=== PATIENT | male | born 1995 | race Hispanic/Latino ===

== ENCOUNTER 2016-04-10 10:12 | Emergency (ER) | payer SELFPAY ==
[~2016-04-10] VITALS: Ht 172.7 cm; Wt 66.4 kg
[~2016-04-10 10:12] MED LIST: EUCERIN INTENS113 GM TP; FLONASE16 G1 BOTH NARES; MOTRIN600 MG PO
[2016-04-10 11:14] LABS: ADD MIUA? YES; BILIRUBIN NEGATIVE; BLOOD SMALL; COLOR YELLOW ((YELLOW)); GLUCOSE (STRIP) NEGATIVE; KETONES NEGATIVE; LEUKOCYTES NEGATIVE; NITRITE NEGATIVE; PROTEIN (STRIP) NEGATIVE; SPECIFIC GRAVITY 1.025 (1.000-1.030); UROBILINOGEN 0.2 MG/DL (0.2-1.0)
[2016-04-10 11:16] LABS: BACTERIA NONE SEEN /HPF; EPITHELIAL CELLS NONE SEEN /HPF; MUCUS 1+ /LPF; RED BLOOD CELLS 0-5 /HPF (0-5); WHITE BLOOD CELLS 0-5 /HPF (0-5)
[2016-04-10 11:31] LABS: INFLUENZA A VIRAL ANTIGEN NEGATIVE; INFLUENZA B VIRAL ANTIGEN NEGATIVE
[2016-04-10 11:32] LABS: HEMATOCRIT 42.2 % (38.0-50.0); MCH 29.1 PG (29.0-34.0); MCHC 34.8 G/DL (30.0-36.0); MCV 83.4 FL (86-99); PLATELET COUNT 217 K/uL (156-360); RBC DIS.WIDTH-CV 12.9 % (11.8-14.6); RBC DIS.WIDTH-SD 38.7 % (39-53); RED BLOOD COUNT 5.06 M/uL (4.00-5.50); WHITE BLOOD COUNT 11.7 K/uL (4.1-10.2)
[2016-04-10 11:39] LABS: CHLORIDE 104 mEq/L (99-109); POTASSIUM 3.9 mEq/L (3.7-5.4); SODIUM 138 mEq/L (136-147)
[2016-04-10 11:40] LABS: GLUCOSE 102 mg/dL (70-99)
[2016-04-10 11:42] LABS: ANION GAP 8 MEQ/L (2-14)
[2016-04-10 11:44] LABS: GFR ESTIMATE (CALCULATED) > 59 mL/min/
[2016-04-10 11:45] LABS: UREA NITROGEN (BUN) 14 mg/dL (9-23)
[2016-04-10] MEDS ORDERED: AUGMENTIN875 MG PO (12:01)
[2016-04-10] MEDS ORDERED: AFRIN,GENASAL D15 ML BOTH NARES (12:01)
[2016-04-10 12:07] VITALS: BP 135/57
== END 2016-04-10 12:08 | disposition home or self-care (01) ==
LOC: EME 10:12
PROVIDERS: Nurse Practitioner Family
DX: J32.9 Chronic sinusitis, unspecified (principal); J06.9 Acute upper respiratory infection, unspecified; R50.81 Fever presenting with conditions classified elsewhere
CPT/HCPCS: 71020; 80048; 81003; 85027; 87502; 99281; 99284

== ENCOUNTER 2016-09-16 13:09 | Emergency (ER) | payer SELFPAY ==
[~2016-09-16] VITALS: Ht 172.7 cm; Wt 65.0 kg
[~2016-09-16 13:09] MED LIST changes: +AFRIN,GENASAL D15 ML BOTH NARES; +AUGMENTIN875 MG PO
[2016-09-16] MEDS ORDERED: FIORICET 50-301 EACH PO (14:16)
[2016-09-16 14:46] VITALS: BP 149/88
== END 2016-09-16 14:54 | disposition home or self-care (01) ==
LOC: EME 13:09
DX: R51 Headache (principal); R42 Dizziness and giddiness; R11.2 Nausea with vomiting, unspecified; H53.149 Visual discomfort, unspecified
CPT/HCPCS: 99281; 99283; J1885; J2765

== ENCOUNTER 2016-09-30 19:40 | Emergency (ER) | payer SELFPAY ==
[~2016-09-30] VITALS: Ht 172.7 cm; Wt 71.5 kg
[~2016-09-30 19:40] MED LIST changes: +FIORICET 50-301 EACH PO
[2016-09-30] MEDS ORDERED: FLEXERIL10 MG PO (23:25)
[2016-09-30] MEDS ORDERED: FIORICET 50-301 EACH PO (23:25)
[2016-09-30 23:39] VITALS: BP 118/68
== END 2016-09-30 23:40 | disposition home or self-care (01) ==
LOC: EME 19:40
DX: G44.209 Tension-type headache, unspecified, not intractable (principal); R42 Dizziness and giddiness; M54.2 Cervicalgia; R11.2 Nausea with vomiting, unspecified
CPT/HCPCS: 70450; 99281; 99284